=== PATIENT | male | born 1955 | race Caucasian/White ===

== ENCOUNTER → 2017-10-04 | Outpatient (CLI) | payer OTHER | LOC: M LRY 15:53 | DX: S69.91XA Unspecified injury of right wrist, hand and finger(s), initial encounter (principal); X58.XXXA Exposure to other specified factors, initial encounter; Y92.89 Other specified places as the place of occurrence of the external cause; Y93.9 Activity, unspecified; Y99.9 Unspecified external cause status | CPT/HCPCS: 73140 ==

== ENCOUNTER 2019-06-13 17:48 | Emergency (ER) | payer OTHER ==
[~2019-06-13] VITALS: Ht 180.3 cm; Wt 102.5 kg
[2019-06-13] MEDS ORDERED: COMB0.2S (17:57)
[2019-06-13] MEDS ORDERED: TRAV04OPD OU (17:57)
[2019-06-13] MEDS ORDERED: BACITRACIN OINT 30GM TOP STA (18:23)
[2019-06-13] MEDS ORDERED: NORCO 5/325MG TABLET (BULK FOR ED) PO ONE (18:30)
[2019-06-13] MEDS ORDERED: ADACEL/BOOSTRIX VACCINE (DIPHTH/PERTUSS/ACELL/TETANUS)0.5ML SYR (90715) IM ONE (18:30)
[2019-06-13] MEDS ORDERED: IBUPROFEN 600 MG TAB PO ONE (19:00)
[2019-06-13] MEDS ORDERED: ACETAMINOPHEN TAB 650MG DOSE (2X325MG) PO ONE (19:00)
[2019-06-13] MEDS ORDERED: BACI500O21 TOP (19:28)
[2019-06-13 19:32] VITALS: BP 189/120
== END 2019-06-13 19:34 | disposition home or self-care (01) ==
LOC: M ED 17:48
DX: T20.29XA Burn of second degree of multiple sites of head, face, and neck, initial encounter (principal); T20.19XA Burn of first degree of multiple sites of head, face, and neck, initial encounter; T31.0 Burns involving less than 10% of body surface; X10.2XXA Contact with fats and cooking oils, initial encounter; Y92.009 Unspecified place in unspecified non-institutional (private) residence as the place of occurrence of the external cause; Y93.G1 Activity, food preparation and clean up; Y99.9 Unspecified external cause status; H40.9 Unspecified glaucoma; Z79.899 Other long term (current) drug therapy

== ENCOUNTER → 2020-01-05 | Outpatient (REF) | payer MEDICARE, OTHER ==
[~2020-01-05] MED LIST: BACI500O21 TOP; COMB0.2S; OMEP-221; SILD50TA2; TRAV04OPD OU; VITA50005
[2020-02-07 15:40] LABS: BASO % 0.4 % (0.0-1.0); EOS # 0.1 10^3/uL (0.0-0.5); EOS % 0.8 % (0.0-3.0); HEMATOCRIT 41.8 % (42.0-52.0); HEMOGLOBIN 13.3 g/dl (13.5-17.5); LYMPH # 1.3 10^3/uL (1.5-5.0); LYMPH % 17.8 % (24.0-44.0); MEAN CORPUSCULAR HEMOGLOBIN 31.2 pg (27.0-33.0); MEAN CORPUSCULAR HGB CONC 31.8 g/dl (32.0-36.5); MEAN CORPUSCULAR VOLUME 98.1 fl (80.0-96.0); MONO # 0.4 10^3/uL (0.0-0.8); MONO % 5.3 % (0.0-5.0); NEUTROPHILS # 5.5 10^3/uL (1.5-8.5); NEUTROPHILS % 75.6 % (36.0-66.0); PLATELET COUNT, AUTOMATED 250 10^3/uL (150-450); RED BLOOD COUNT 4.26 10^6/uL (4.30-6.10); WHITE BLOOD COUNT 7.3 10^3/uL (4.0-10.0)
[2020-02-19 16:56] LABS: ALBUMIN 3.9 GM/DL (3.2-5.2); ALT/SGPT 31 U/L (12-78); BILIRUBIN,TOTAL 0.4 MG/DL (0.2-1.0); BLOOD UREA NITROGEN 16 MG/DL (7-18); CALCIUM LEVEL 9.1 MG/DL (8.8-10.2); CARBON DIOXIDE LEVEL 26 MEQ/L (21-32); CHLORIDE LEVEL 109 MEQ/L (98-107); CHOLESTEROL LEVEL 196 MG/DL (<200); CHOLESTEROL RISK RATIO 3.563 (<5); CREATININE FOR GFR 1.19 MG/DL (0.70-1.30); GLOMERULAR FILTRATION RATE > 60.0 (>49); GLUCOSE, FASTING 109 MG/DL (70-100); HDL CHOLESTEROL 55 MG/DL (>40); LDL CHOLESTEROL 115 MG/DL (<100); NON-HDL-C 141 MG/DL; POTASSIUM SERUM 3.8 MEQ/L (3.5-5.1); SODIUM LEVEL 141 MEQ/L (136-145); TOTAL 25(OH) VITAMIN D 28.1 NG/ML (30.0-100.0); TOTAL PROTEIN 6.6 GM/DL (6.4-8.2); TRIGLYCERIDES LEVEL 132 MG/DL (<150)
[2020-02-19 16:57] LABS: HEMOGLOBIN A1c 5.6 %
== END ==
LOC: M WUC 13:08
PROVIDERS: ATTEND Physician Assistant
DX: Z13.29 Encounter for screening for other suspected endocrine disorder (principal); Z13.220 Encounter for screening for lipoid disorders; R35.1 Nocturia; E78.00 Pure hypercholesterolemia, unspecified; Z12.5 Encounter for screening for malignant neoplasm of prostate
CPT/HCPCS: 36415; 80053; 80061; 82306; 83036; 85025; G0103

== ENCOUNTER → 2020-09-12 | Outpatient (CLI) | payer MEDICARE, OTHER ==
[2020-09-12 16:47] LABS: BASO % 0.4 % (0.0-1.0); EOS % 0.4 % (0.0-3.0); HEMATOCRIT 46.9 % (42.0-52.0); LYMPH # 1.7 10^3/uL (1.5-5.0); MEAN CORPUSCULAR HEMOGLOBIN 30.6 pg (27.0-33.0); MEAN CORPUSCULAR VOLUME 95.7 fl (80.0-96.0); MONO # 0.7 10^3/uL (0.0-0.8); MONO % 6.4 % (2.0-8.0); NEUTROPHILS # 8.1 10^3/uL (1.5-8.5); NEUTROPHILS % 76.3 % (36.0-66.0); PLATELET COUNT, AUTOMATED 294 10^3/uL (150-450); WHITE BLOOD COUNT 10.5 10^3/uL (4.0-10.0)
[2020-09-12 17:57] LABS: BLOOD UREA NITROGEN 13 MG/DL (7-18); CALCIUM LEVEL 9.5 MG/DL (8.8-10.2); CARBON DIOXIDE LEVEL 23 MEQ/L (21-32); CHLORIDE LEVEL 105 MEQ/L (98-107); CREATININE FOR GFR 1.14 MG/DL (0.70-1.30); GLOMERULAR FILTRATION RATE > 60.0 (>49); GLUCOSE, FASTING 112 MG/DL (70-100); POTASSIUM SERUM 3.7 MEQ/L (3.5-5.1); SODIUM LEVEL 138 MEQ/L (136-145)
[2020-09-12 17:58] LABS: ALT/SGPT 21 U/L (12-78); BILIRUBIN,TOTAL 0.6 MG/DL (0.2-1.0); CHOLESTEROL LEVEL 186 MG/DL (<200); CHOLESTEROL RISK RATIO 3.647 (<5); HDL CHOLESTEROL 51 MG/DL (>40); LDL CHOLESTEROL 75 MG/DL (<100); NON-HDL-C 135 MG/DL; TOTAL 25(OH) VITAMIN D 41.8 NG/ML (30.0-100.0); TOTAL PROTEIN 6.7 GM/DL (6.4-8.2); TRIGLYCERIDES LEVEL 299 MG/DL (<150)
== END ==
LOC: M WUC 13:50
PROVIDERS: ATTEND Physician Assistant
DX: E55.9 Vitamin D deficiency, unspecified (principal); E75.6 Lipid storage disorder, unspecified; Z12.5 Encounter for screening for malignant neoplasm of prostate; Z79.899 Other long term (current) drug therapy
CPT/HCPCS: 36415; 80053; 80061; 82306; 85025; G0103

== ENCOUNTER → 2020-10-17 | Outpatient (REF) | payer MEDICARE, OTHER | LOC: M LAB REF 09:04 | PROVIDERS: ATTEND Otolaryngology | DX: D37.02 Neoplasm of uncertain behavior of tongue (principal) ==

== ENCOUNTER → 2020-11-02 | Outpatient (CLI) | payer MEDICARE, OTHER ==
[~2020-11-02] MED LIST changes: +ISOVUE-370 76% 100ML VIAL As Ordered ONE
--- NOTE | 2020-11-02 14:58 | REPVR ---
PROCEDURE INFORMATION: Exam: CT Neck With Contrast Exam date and time: 11/02/2020 2:08 PM Age: 65 years old Clinical indication: Other: Neoplasm uncertain behavior tongue TECHNIQUE: Imaging protocol: Computed tomography images of the neck with contrast. Radiation optimization: All CT scans at this facility use at least one of these dose optimization techniques: automated exposure control; mA and/or kV adjustment per patient size (includes targeted exams where dose is matched to clinical indication); or iterative reconstruction. Contrast material: ISOVUE 370; Contrast volume: 75 ml; Contrast route: INTRAVENOUS (IV); COMPARISON: No relevant prior studies available. FINDINGS: Nasopharynx: Unremarkable. Oropharynx: There is extensive motion noted involving the base of the tongue as well as significant artifact is from dentition/metal fillings. The base of the tongue is not seen adequately enough to comment. There may be a soft tissue density to the left measuring 15 x 14 mm. Consider MRI. Hypopharynx: Unremarkable. Larynx: Unremarkable. Normal epiglottis. Retropharyngeal space: Unremarkable. Submandibular/Parotid glands: Normal. Glands are normal in size. Thyroid: Subtle heterogenicity is noted involving the left lobe of the thyroid. Lymph nodes: Unremarkable. No lymphadenopathy. Trachea: Visualized trachea is unremarkable. Lungs: Unremarkable as visualized. Bones/joints: Unremarkable. No acute fracture. Soft tissues: See "Oropharynx" finding. IMPRESSION: Poor visualization of the base of the tongue due to the factors as above. Consider MRI for better visualization if the patient can hold still for the examination as dentition does limit this of area of evaluation as well. Questionable mass left base of tongue. Electronically signed by: Arthur Floyd On 11/02/2020 14:58:25 PM
== END ==
LOC: M RAD 13:51
PROVIDERS: ATTEND Otolaryngology
DX: D37.02 Neoplasm of uncertain behavior of tongue (principal)
CPT/HCPCS: 70491; Q9967

== ENCOUNTER → 2020-11-17 | Outpatient (CLI) | payer MEDICARE, OTHER ==
[~2020-11-17] MED LIST changes: +ERGO500029; -ISOVUE-370 76% 100ML VIAL As Ordered ONE; -VITA50005
[2020-11-17 11:08] LABS: CREATININE FOR GFR 1.34 MG/DL (0.70-1.30); GLOMERULAR FILTRATION RATE 56.8 (>49)
== END ==
LOC: M WUC 08:03
PROVIDERS: ATTEND Otolaryngology
DX: D00.07 Carcinoma in situ of tongue (principal)

== ENCOUNTER → 2020-11-30 | Outpatient (CLI) | payer MEDICARE, OTHER ==
[~2020-11-30] MED LIST changes: +DRIS50003 PO; +PROHANCE 279.3MG/ML 15ML VIAL As Ordered ONE; +PROHANCE 279.3MG/ML 5ML VIAL As Ordered ONE
--- NOTE | 2020-11-30 10:11 | REP ---
INDICATION: CARCINOMA OF TONGUE. 5 mm area of leukoplakia on the ventral surface of the tongue. Rule out lymphadenopathy. Comparison CT study November 02, 2020 COMPARISON: Comparison CT study of the neck November 02, 2020.. TECHNIQUE: Pre and post gadolinium enhanced imaging is acquired with axial, coronal, and sagittal imaging planes. T1 and T2 weighted scans are included with without fat saturation. The gadolinium enhancement dose is 20 mL of intravenous ProHance. FINDINGS: There are 1 or 2 normal-sized anterior cervical lymph nodes. There is no evidence of submental, suprahyoid, or infrahyoid adenopathy in the neck. Question nodular changes in the visualized portions of the left lobe of the thyroid. Thyroid lobes are otherwise homogeneous. Submandibular glands and parotid glands are normal and symmetric. There is no evidence of intraorbital mass. The visualized paranasal sinuses are clear. The visualized tongue and floor of mouth structures are unremarkable and symmetric on pre and postcontrast imaging. No tongue mass is resolved. Posterior surface of the tongue is unremarkable on sagittal post gadolinium enhanced MRI study. No bony destructive lesion is seen. The visualized intracranial structures are unremarkable. IMPRESSION: No mass or adenopathy seen. <Electronically signed by Jordi Houser > 11/30/20 0319
== END ==
LOC: M RAD 07:13
PROVIDERS: ATTEND Otolaryngology
DX: D00.07 Carcinoma in situ of tongue (principal)
CPT/HCPCS: 70543; A9576

== ENCOUNTER → 2020-12-03 | Outpatient (CLI) | payer MEDICARE, OTHER ==
[~2020-12-03] MED LIST changes: -PROHANCE 279.3MG/ML 15ML VIAL As Ordered ONE; -PROHANCE 279.3MG/ML 5ML VIAL As Ordered ONE; +TIMO0.5S29
== END ==
LOC: M LABSMTC 09:14
PROVIDERS: ATTEND Anesthesiology
DX: Z01.812 Encounter for preprocedural laboratory examination (principal)

== ENCOUNTER 2020-12-08 08:54 | Day surgery (SDC) | payer MEDICARE, OTHER ==
[~2020-12-08] VITALS: Ht 180.3 cm; Wt 100.7 kg
[~2020-12-08 08:54] MED LIST changes: +LR 1,000 ML IV ONE; -TIMO0.5S29; +dexameTHASONE 4 MG/ML 1ML VIAL (J1100 PER 1MG) IV ONE
[2020-12-08] MEDS ORDERED: TIMO0.5S29 (09:49)
[2020-12-08] MEDS ORDERED: propofoL 200 MG/20 ML VIAL As Ordered ONE (10:43)
[2020-12-08] MEDS ORDERED: ROCURONIUM BROMIDE 50 MG/5 ML VIAL As Ordered ONE (10:43)
[2020-12-08] MEDS ORDERED: ACETAMINOPHEN 1000MG 100ML IV BTL (OFIRMEV) (J0131 PER 10MG) As Ordered ONE (10:43)
[2020-12-08] MEDS ORDERED: ONDANSETRON 4MG/2ML VIAL As Ordered ONE (10:43)
[2020-12-08] MEDS ORDERED: MIDAZOLAM INJ 2MG/2ML VIAL (J2250 PER 1MG) As Ordered ONE (10:43)
[2020-12-08] MEDS ORDERED: dexameTHASONE 4 MG/ML 1ML VIAL (J1100 PER 1MG) As Ordered ONE (10:43)
[2020-12-08] MEDS ORDERED: fentaNYL 100 MCG/2 ML INJECTION (J3010) As Ordered ONE (10:43)
[2020-12-08] MEDS ORDERED: KETOROLAC 60MG 2ML VIAL As Ordered ONE (10:43)
[2020-12-08] MEDS ORDERED: LIDOCAINE 2% 100MG/5ML SDV (FOR ANES.) As Ordered ONE (10:43)
[2020-12-08] MEDS ORDERED: SUGAMMADEX SODIUM 500 MG/5 ML VIAL (BRIDION) As Ordered ONE (10:50)
[2020-12-08] MEDS ORDERED: LIDOCAINE W/EPINEPHRINE 1% 20ML VIAL As Ordered ONE (11:15)
[2020-12-08] MEDS ORDERED: METHYLENE BLUE 0.5% (5MG/ML) 10 ML AMP (PROVAYBLUE) As Ordered ONE (11:15)
[2020-12-08] MEDS ORDERED: OXYMETAZOLINE 0.05% NASAL SPRAY (AFRIN) As Ordered ONE (11:15)
[2020-12-08] MEDS ORDERED: CEFUROXIME INJ 1.5 GM VIAL (J0697 PER 750MG) As Ordered ONE (12:13)
[2020-12-08] MEDS ORDERED: LABETALOL 100MG/20ML VIAL As Ordered ONE (13:42)
[2020-12-08] MEDS ORDERED: fentaNYL 100 MCG/2 ML INJECTION (J3010) IV PRN (13:45)
[2020-12-08] MEDS ORDERED: ONDANSETRON 4MG/2ML VIAL IV PRN (13:45)
[2020-12-08] MEDS ORDERED: LR 1,000 ML IV SCH ×2 (13:45)
[2020-12-08] MEDS ORDERED: oxyCODONE 5MG TAB PO PRN (13:45)
[2020-12-08] MEDS ORDERED: METOCLOPRAMIDE INJ 10MG/2ML VIAL (J2765 PER 1) IV PRN (13:45)
[2020-12-08] MEDS ORDERED: HYDROMORPHONE HCL 0.5 MG/ 0.5 ML SYRINGE (J1170 PER 1) IV PRN (13:45)
[2020-12-08] MEDS: LABETALOL 100MG/20ML VIAL IV PRN ×2 (13:46→13:51)
[2020-12-08] MEDS: hydrALAZINE 20MG/ML 1ML VIAL (J0360 PER 20MG) IV PRN ×2 (15:43→15:49)
[2020-12-08] MEDS ORDERED: hydrALAZINE 20MG/ML 1ML VIAL (J0360 PER 20MG) IV PRN (16:25)
[2020-12-08] MEDS ORDERED: LABETALOL 100MG/20ML VIAL IV PRN (16:25)
[2020-12-08 16:47] VITALS: BP 175/102
[2020-12-08 17:15] VITALS: BP 170/90
--- NOTE | 2020-12-09 22:31 | ECGEPIP ---
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
--- NOTE | 2021-01-04 08:41 | RO ---
OPERATIVE NOTE DATE OF OPERATION: 12/08/2020 PREOPERATIVE DIAGNOSIS: Carcinoma in situ left ventral tongue. POSTOPERATIVE DIAGNOSIS: Carcinoma in situ left ventral tongue. PROCEDURE PERFORMED: Excision of the carcinoma in situ from the left ventral tongue 2 x 1.8 cm. Direct suspension microlaryngoscopy. SURGEON: Jonel Jamison MD. 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 CLINICAL PREAMBLE: This 65-year-old man presented to the office with a six month history of sore area over the left ventral tongue. Biopsy confirmed presence of carcinoma in situ of the left ventral tongue lesion. Management options including excision of the tongue lesion have been discussed. MRI showed no evidence of cervical lymphadenopathy. Patient understood and consented to the procedure. CT of the neck showed questionable mass in the left base of tongue. OR NARRATION: Patient was identified in preholding and brought to the operating room in stable condition. In the supine position on the operating table, patient received general anesthesia followed by nasotracheal intubation without incident. Patient prepped and draped in the usual fashion for the procedure. Bimanual palpation of the oral cavity, oral tongue, base of tongue, buccal, lateral and posterior pharyngeal wall showed no evidence of discreet nodule. Using the Dedo-Pilling laryngoscope, the mucosa of the oral cavity, oropharynx, base of tongue, supraglottis, glottis, and hypopharynx were visualized. There was no evidence of mucosal lesion. Attention was paid to the left base of the tongue region which showed no evidence of ulceration or mass lesion. The oral cavity was then retracted open. The tongue was then retracted rightward to allow exposure of the left ventral tongue. The lesion was visualized and outlined to ensure a centimeter margin. Excision was then performed to obtain the tissue specimen measuring 2 x 1.8 cm with at least 1 cm deep margin as well. Upon completion of the excision, the specimen was marked with one suture indicating anterior and two sutures to indicate superior position of the specimen. Hemostasis was observed. The wound was then closed in two layers. Complete hemostasis was observed at the end of the case. Estimated blood loss was less than 20 mL. General anesthesia was reversed. Instrument and sponge counts were correct. Patient was extubated and brought to recovery room in stable condition. Edited: bryce 01/04/2021 0904 MTDD
== END 2020-12-08 17:32 | disposition home or self-care (01) ==
LOC: M SDC 08:54
PROVIDERS: ATTEND Otolaryngology
DX: D00.07 Carcinoma in situ of tongue (principal); I10 Essential (primary) hypertension; K21.9 Gastro-esophageal reflux disease without esophagitis; T88.59XD Other complications of anesthesia, subsequent encounter; X58.XXXD Exposure to other specified factors, subsequent encounter; Z79.899 Other long term (current) drug therapy; Z96.1 Presence of intraocular lens
CPT/HCPCS: 41112; 88305; 93005; J0131; J0360; J0697; J1100; J1885; J2250; J2405; J3010; Q9968

== ENCOUNTER → 2020-12-23 | Outpatient (CLI) | payer MEDICARE, OTHER ==
[~2020-12-23] MED LIST changes: -LR 1,000 ML IV ONE; +TIMO0.5S29; -dexameTHASONE 4 MG/ML 1ML VIAL (J1100 PER 1MG) IV ONE
--- NOTE | 2020-12-25 05:52 | ECHO ---
ECHOCARDIOGRAM DATE OF PROCEDURE: 12/23/2020 Age: 65 Gender: Male Height: 180 cm Weight: 99 kg REFERRING PHYSICIAN: Kathia James M.D. INDICATION: Essential hypertension. MEASUREMENTS: 2D Measurements: LVOT 2.0 cm Intraventricular septum 1.41 cm Posterior wall 1.3 cm Left ventricle diastole 4.1 cm Left ventricle systole 2.5 cm Left atrium 3.5 cm Left atrial volume index 23 Proximal ascending aorta 4.1 cm Doppler Measurements: No aortic stenosis No aortic regurgitation LVOT velocity 85.2 cm/sec No mitral regurgitation No mitral stenosis Mitral E velocity 67.6 cm/sec Mitral A velocity 87.4 cm/sec Mitral deceleration time 165 msec No tricuspid regurgitation Mild pulmonic regurgitation MITRAL ANNULAR TISSUE DOPPLER: E prime septal 3.7 cm/sec E prime lateral 5.1 cm/sec DESCRIPTION: Rhythm was sinus. Image quality was fair. No pericardial effusion. This was a 2D, M-mode, color flow Doppler and pulse wave Doppler examination including mitral annular tissue Doppler. CONCLUSIONS: 1. Mild concentric left ventricular hypertrophy. Normal regional left ventricular (LV) wall motion and wall thickening. Normal LV systolic function. Left ventricular ejection fraction (LVEF) 70% by visual assessment. Grade 1 LV diastolic dysfunction. 2. Mild dilatation of the proximal ascending aorta. 3. Moderate aortic valve sclerosis of A3-cuspid aortic valve. No aortic stenosis or regurgitation. 4. Normal left atrial volume index. 5. Otherwise normal appearing echocardiogram Doppler findings.
== END ==
LOC: M CARPUL 08:23
PROVIDERS: ATTEND Family Medicine
DX: I10 Essential (primary) hypertension (principal)

== ENCOUNTER → 2021-01-10 | Outpatient (REF) | payer MEDICARE, OTHER | LOC: M LAB REF 19:23 | PROVIDERS: ATTEND Physician Assistant | DX: J20.9 Acute bronchitis, unspecified (principal) ==

== ENCOUNTER → 2021-01-11 | Outpatient (CLI) | payer MEDICARE, OTHER ==
--- NOTE | 2021-01-11 08:38 | REP ---
INDICATION: J20.9 ACUTE BRONCHITIS. COMPARISON: None. TECHNIQUE: PA and lateral FINDINGS: The superior mediastinal structures are midline. The cardiac silhouette is unremarkable in size, shape, and position. The diaphragmatic surfaces of the lungs are regular, and the costophrenic angles are clear. The pulmonary kaur are clear. The imaged osseous structures are intact. IMPRESSION: There is no acute cardiopulmonary disease. <Electronically signed by Cm Stone > 01/11/21 0890
== END ==
LOC: M WUC 08:17
PROVIDERS: ATTEND Physician Assistant
DX: J20.9 Acute bronchitis, unspecified (principal)

== ENCOUNTER → 2021-01-19 | Outpatient (CLI) | payer MEDICARE, OTHER | LOC: M WUC 08:14 | PROVIDERS: ATTEND Nurse Practitioner Women's Health | DX: R97.20 Elevated prostate specific antigen [PSA] (principal) ==

== ENCOUNTER → 2021-08-14 | Outpatient (CLI) | payer MEDICARE, OTHER ==
[~2021-08-14] MED LIST changes: -OMEP-221; +OMEP40CA5; +PROHANCE 279.3MG/ML 15ML VIAL As Ordered ONE; +PROHANCE 279.3MG/ML 5ML VIAL As Ordered ONE
== END ==
LOC: M PLAIMG 07-26 07:48 → M RAD 13:15
PROVIDERS: ATTEND Otolaryngology
DX: C02.1 Malignant neoplasm of border of tongue (principal)
CPT/HCPCS: 70543; A9576

== ENCOUNTER → 2021-09-28 | Outpatient (CLI) | payer MEDICARE, OTHER ==
[~2021-09-28] MED LIST changes: +BIMA1SOL OU; +DORZ2SOL5 OU; +ENAL-36 PO; -OMEP40CA5; +OMEP40CA5 PO; +PERI12LIQ PO; -PROHANCE 279.3MG/ML 15ML VIAL As Ordered ONE; -PROHANCE 279.3MG/ML 5ML VIAL As Ordered ONE; -SILD50TA2; +SILD50TA2 PO
== END ==
LOC: M LABSMTC 10:06
PROVIDERS: ATTEND Anesthesiology
DX: Z01.812 Encounter for preprocedural laboratory examination (principal); Z20.822 Contact with and (suspected) exposure to COVID-19

== ENCOUNTER → 2021-09-30 | Outpatient (CLI) | payer MEDICARE, OTHER | LOC: M EKG 08:22 | PROVIDERS: ATTEND Anesthesiology | DX: I10 Essential (primary) hypertension (principal) ==

== ENCOUNTER 2021-10-03 07:16 | Inpatient (IN) | payer MEDICARE, OTHER ==
[2021-10-03] VITALS (15 sets, daily range): BP systolic 134–179; BP diastolic 68–106; O2SAT 93–96
[~2021-10-03] VITALS: Ht 180.3 cm; Wt 94.7 kg
[~2021-10-03 07:16] MED LIST changes: +LR 1,000 ML IV ONE; +dexameTHASONE 4 MG/ML 1ML VIAL (J1100 PER 1MG) IV ONE
[2021-10-03] MEDS ORDERED: fentaNYL 100 MCG/2 ML INJECTION As Ordered ONE (08:30)
[2021-10-03] MEDS ORDERED: dexameTHASONE 4 MG/ML 1ML VIAL (J1100 PER 1MG) As Ordered ONE (08:30)
[2021-10-03] MEDS ORDERED: KETOROLAC 60MG 2ML VIAL As Ordered ONE (08:30)
[2021-10-03] MEDS ORDERED: METOCLOPRAMIDE INJ 10MG/2ML VIAL (J2765 PER 1) As Ordered ONE (08:30)
[2021-10-03] MEDS ORDERED: ONDANSETRON 4MG/2ML VIAL As Ordered ONE (08:30)
[2021-10-03] MEDS ORDERED: LIDOCAINE 2% 100MG/5ML SDV (FOR ANES.) As Ordered ONE (08:30)
[2021-10-03] MEDS ORDERED: ROCURONIUM BROMIDE 50 MG/5 ML VIAL As Ordered ONE (08:30)
[2021-10-03] MEDS ORDERED: MIDAZOLAM INJ 2MG/2ML VIAL (J2250 PER 1MG) As Ordered ONE (08:30)
[2021-10-03] MEDS ORDERED: propofoL 200 MG/20 ML VIAL As Ordered ONE ×2 (08:30→14:03)
[2021-10-03] MEDS ORDERED: LIDOCAINE W/EPINEPHRINE 1% 20ML VIAL As Ordered ONE (09:14)
[2021-10-03] MEDS ORDERED: POLYSPORIN TOPICAL OINTMENT 15GM As Ordered ONE (09:15)
[2021-10-03] MEDS ORDERED: PHENYLEPHRINE 0.5% NASAL SPRAY 15 ML As Ordered ONE (09:33)
[2021-10-03] MEDS ORDERED: HYDROmorphone HCL 2MG/ML 1ML VIAL As Ordered ONE (10:06)
[2021-10-03] MEDS ORDERED: LABETALOL 100MG/20ML VIAL As Ordered ONE (11:43)
[2021-10-03] MEDS ORDERED: oxyCODONE 5MG TAB PO PRN (14:10)
[2021-10-03] MEDS ORDERED: LR 1,000 ML IV SCH ×2 (14:10→15:35)
[2021-10-03] MEDS ORDERED: ONDANSETRON 4MG/2ML VIAL IV PRN ×3 (14:10→20:00)
[2021-10-03] MEDS ORDERED: fentaNYL 100 MCG/2 ML INJECTION IV PRN (14:10)
[2021-10-03] MEDS ORDERED: HYDROMORPHONE HCL 0.5 MG/ 0.5 ML SYRINGE (J1170 PER 1) IV PRN (14:10)
[2021-10-03] MEDS ORDERED: ACETAMINOPHEN TAB 650MG DOSE (2X325MG) PO PRN (15:50)
[2021-10-03] MEDS ORDERED: MAALOX 30 ML SUSP *UDC PO PRN (15:50)
[2021-10-03] MEDS: NS 1,000 ML IV SCH (16:33)
[2021-10-03] MEDS: dexameTHASONE 4 MG/ML 1ML VIAL (J1100 PER 1MG) IV SCH (17:34)
[2021-10-03] MEDS: PANTOPRAZOLE 40MG VIAL IV SCH (17:34)
[2021-10-03] MEDS ORDERED: diphenhydrAMINE 50MG/ML VIAL (J1200) IV PRN ×2 (20:00)
[2021-10-03] MEDS ORDERED: NALOXONE INJ 0.4MG/1ML VIAL (J2310 PER 1MG) IV PRN ×2 (20:00)
[2021-10-03] MEDS ORDERED: NS 1,000 ML IV SCH (20:00)
[2021-10-03] MEDS ORDERED: EPIDURAL/PCA KEYS XX PRN ×2 (20:00)
[2021-10-03] MEDS ORDERED: MORPHINE 1MG/ML IN 0.9% NACL 100ML IV BAG IV PRN (20:00)
[2021-10-03] MEDS: MORPHINE 1MG/ML IN 0.9% NACL 100ML IV BAG IV PRN (20:10)
[2021-10-03] MEDS: DOCUSATE SODIUM 100MG CAPSULE PO SCH (21:00)
[2021-10-03] MEDS: BACITRACIN OINTMENT 30GM TUBE TOP SCH (21:00)
[2021-10-04] VITALS (17 sets, daily range): BP systolic 139–168; BP diastolic 72–86; O2SAT 93–96
[2021-10-04] MEDS: dexameTHASONE 4 MG/ML 1ML VIAL (J1100 PER 1MG) IV SCH ×2 (02:04→09:48)
[2021-10-04 05:07] LABS: BASO % 0.1 % (0.0-1.0); HEMATOCRIT 39.7 % (42.0-52.0); HEMOGLOBIN 12.9 g/dl (13.5-17.5); LYMPH # 0.5 10^3/uL (1.5-5.0); LYMPH % 3.1 % (24.0-44.0); MEAN CORPUSCULAR HEMOGLOBIN 32.7 pg (27.0-33.0); MEAN CORPUSCULAR HGB CONC 32.5 g/dl (32.0-36.5); MEAN CORPUSCULAR VOLUME 100.8 fl (80.0-96.0); MONO # 0.2 10^3/uL (0.0-0.8); MONO % 1.6 % (2.0-8.0); NEUTROPHILS # 13.8 10^3/uL (1.5-8.5); NEUTROPHILS % 94.7 % (36.0-66.0); PLATELET COUNT, AUTOMATED 310 10^3/uL (150-450); RED BLOOD COUNT 3.94 10^6/uL (4.30-6.10); WHITE BLOOD COUNT 14.6 10^3/uL (4.0-10.0)
[2021-10-04 05:33] LABS: ALBUMIN 3.4 GM/DL (3.2-5.2); ALT/SGPT 24 U/L (12-78); BILIRUBIN,TOTAL 0.6 MG/DL (0.2-1.0); BLOOD UREA NITROGEN 15 MG/DL (7-18); CALCIUM LEVEL 9.3 MG/DL (8.8-10.2); CARBON DIOXIDE LEVEL 24 MEQ/L (21-32); CHLORIDE LEVEL 107 MEQ/L (98-107); CREATININE FOR GFR 1.06 MG/DL (0.70-1.30); GLOMERULAR FILTRATION RATE > 60.0 (>49); GLUCOSE, FASTING 152 MG/DL (70-100); MAGNESIUM LEVEL 2.5 MG/DL (1.8-2.4); POTASSIUM SERUM 4.2 MEQ/L (3.5-5.1); SODIUM LEVEL 137 MEQ/L (136-145); TOTAL PROTEIN 6.6 GM/DL (6.4-8.2)
[2021-10-04] MEDS: DOCUSATE SODIUM 100MG CAPSULE PO SCH ×2 (09:00→20:46)
[2021-10-04] MEDS: BACITRACIN OINTMENT 30GM TUBE TOP SCH ×2 (09:49→22:10)
[2021-10-04] MEDS: MAGIC MOUTHWASH SUSPENSION BTL SSP PRN (14:48)
[2021-10-04] MEDS: NS 1,000 ML IV SCH ×2 (14:48→15:46)
[2021-10-04] MEDS: PANTOPRAZOLE 40MG VIAL IV SCH (18:19)
[2021-10-04] MEDS: MORPHINE 1MG/ML IN 0.9% NACL 100ML IV BAG IV PRN (20:15)
[2021-10-05] VITALS (7 sets, daily range): BP systolic 158–182; BP diastolic 84–110; O2SAT 93–94
[2021-10-05] MEDS: NS 1,000 ML IV SCH ×2 (01:16→13:16)
[2021-10-05] MEDS ORDERED: ENALAPRIL MALEATE 10 MG TAB PO SCH (03:55)
[2021-10-05 05:12] LABS: BASO % 0.1 % (0.0-1.0); HEMATOCRIT 36.8 % (42.0-52.0); HEMOGLOBIN 11.9 g/dl (13.5-17.5); LYMPH # 1.3 10^3/uL (1.5-5.0); LYMPH % 7.5 % (24.0-44.0); MEAN CORPUSCULAR HEMOGLOBIN 33.1 pg (27.0-33.0); MEAN CORPUSCULAR HGB CONC 32.3 g/dl (32.0-36.5); MEAN CORPUSCULAR VOLUME 102.5 fl (80.0-96.0); MONO # 0.9 10^3/uL (0.0-0.8); MONO % 5.4 % (2.0-8.0); NEUTROPHILS # 14.7 10^3/uL (1.5-8.5); NEUTROPHILS % 86.5 % (36.0-66.0); PLATELET COUNT, AUTOMATED 289 10^3/uL (150-450); RED BLOOD COUNT 3.59 10^6/uL (4.30-6.10)
[2021-10-05 05:34] LABS: ALBUMIN 3.1 GM/DL (3.2-5.2); ALT/SGPT 22 U/L (12-78); BILIRUBIN,TOTAL 0.7 MG/DL (0.2-1.0); BLOOD UREA NITROGEN 16 MG/DL (7-18); CALCIUM LEVEL 8.6 MG/DL (8.8-10.2); CARBON DIOXIDE LEVEL 28 MEQ/L (21-32); CHLORIDE LEVEL 107 MEQ/L (98-107); CREATININE FOR GFR 0.96 MG/DL (0.70-1.30); GLOMERULAR FILTRATION RATE > 60.0 (>49); GLUCOSE, FASTING 94 MG/DL (70-100); MAGNESIUM LEVEL 2.7 MG/DL (1.8-2.4); POTASSIUM SERUM 4.3 MEQ/L (3.5-5.1); SODIUM LEVEL 140 MEQ/L (136-145); TOTAL PROTEIN 5.8 GM/DL (6.4-8.2)
[2021-10-05] MEDS: hydrALAZINE 20MG/ML 1ML VIAL (J0360 PER 20MG) IV PRN ×2 (06:51→17:22)
[2021-10-05] MEDS: DOCUSATE SODIUM 100MG CAPSULE PO SCH ×2 (08:34→19:56)
[2021-10-05] MEDS: BACITRACIN OINTMENT 30GM TUBE TOP SCH ×2 (09:12→19:57)
[2021-10-05] MEDS: dexameTHASONE 4 MG/ML 1ML VIAL (J1100 PER 1MG) IV SCH ×2 (09:12→19:56)
[2021-10-05] MEDS: MAGIC MOUTHWASH SUSPENSION BTL SSP PRN (14:42)
[2021-10-05] MEDS: PANTOPRAZOLE 40MG VIAL IV SCH (18:29)
[2021-10-05] MEDS ORDERED: LABETALOL 100MG/20ML VIAL IV STA (18:47)
[2021-10-05] MEDS: NS 0.45% 1,000 ML IV SCH (19:56)
[2021-10-06] VITALS (26 sets, daily range): BP systolic 118–174; BP diastolic 73–100; O2SAT 93–97
[2021-10-06 05:49] LABS: HEMOGLOBIN 13.5 g/dl (13.5-17.5); LYMPH # 0.6 10^3/uL (1.5-5.0); LYMPH % 5.1 % (24.0-44.0); MEAN CORPUSCULAR HEMOGLOBIN 34.1 pg (27.0-33.0); MEAN CORPUSCULAR HGB CONC 32.9 g/dl (32.0-36.5); MEAN CORPUSCULAR VOLUME 103.5 fl (80.0-96.0); MONO # 0.4 10^3/uL (0.0-0.8); MONO % 3.5 % (2.0-8.0); NEUTROPHILS % 90.9 % (36.0-66.0); PLATELET COUNT, AUTOMATED 329 10^3/uL (150-450); RED BLOOD COUNT 3.96 10^6/uL (4.30-6.10)
[2021-10-06 06:21] LABS: ALBUMIN 3.3 GM/DL (3.2-5.2); ALT/SGPT 46 U/L (12-78); BILIRUBIN,TOTAL 0.9 MG/DL (0.2-1.0); BLOOD UREA NITROGEN 19 MG/DL (7-18); CARBON DIOXIDE LEVEL 26 MEQ/L (21-32); CHLORIDE LEVEL 103 MEQ/L (98-107); CREATININE FOR GFR 1.03 MG/DL (0.70-1.30); GLOMERULAR FILTRATION RATE > 60.0 (>49); GLUCOSE, FASTING 143 MG/DL (70-100); MAGNESIUM LEVEL 2.8 MG/DL (1.8-2.4); POTASSIUM SERUM 4.6 MEQ/L (3.5-5.1); SODIUM LEVEL 135 MEQ/L (136-145); TOTAL PROTEIN 6.6 GM/DL (6.4-8.2)
[2021-10-06] MEDS: DOCUSATE SODIUM 100MG CAPSULE PO SCH ×3 (09:00→20:11)
[2021-10-06] MEDS: BACITRACIN OINTMENT 30GM TUBE TOP SCH ×2 (09:41→20:23)
[2021-10-06] MEDS: dexameTHASONE 4 MG/ML 1ML VIAL (J1100 PER 1MG) IV SCH ×2 (09:41→20:22)
[2021-10-06] MEDS: NS 0.45% 1,000 ML IV SCH (12:55)
[2021-10-06] MEDS ORDERED: LABETALOL 100MG/20ML VIAL IV STA (13:16)
[2021-10-06] MEDS ORDERED: MORPHINE 2 MG/ML 1ML VIAL IV PRN (13:35)
[2021-10-06] MEDS: NORCO, ANEXSIA 5/325MG TABLET (HYDROcodone/ACETAMINOPHEN) PO PRN (14:22)
[2021-10-06] MEDS: MAGIC MOUTHWASH SUSPENSION BTL SSP PRN (14:23)
[2021-10-06] MEDS: ENALAPRIL MALEATE 10 MG TAB PO SCH (16:46)
[2021-10-06] MEDS: PANTOPRAZOLE 40MG VIAL IV SCH (18:22)
[2021-10-06] MEDS: COSOPT OCUMETER PLUS 10ML (DORZOLAMIDE/TIMOLOL) OU SCH (20:22)
[2021-10-07] VITALS (9 sets, daily range): BP systolic 120–140; BP diastolic 74–87; O2SAT 92–96
[2021-10-07 06:12] LABS: HEMATOCRIT 39.5 % (42.0-52.0); LYMPH # 0.6 10^3/uL (1.5-5.0); LYMPH % 4.5 % (24.0-44.0); MEAN CORPUSCULAR HEMOGLOBIN 33.1 pg (27.0-33.0); MEAN CORPUSCULAR HGB CONC 32.9 g/dl (32.0-36.5); MEAN CORPUSCULAR VOLUME 100.5 fl (80.0-96.0); MONO # 0.6 10^3/uL (0.0-0.8); MONO % 4.4 % (2.0-8.0); NEUTROPHILS # 11.6 10^3/uL (1.5-8.5); NEUTROPHILS % 90.5 % (36.0-66.0); PLATELET COUNT, AUTOMATED 350 10^3/uL (150-450); RED BLOOD COUNT 3.93 10^6/uL (4.30-6.10); WHITE BLOOD COUNT 12.8 10^3/uL (4.0-10.0)
[2021-10-07] MEDS: NORCO, ANEXSIA 5/325MG TABLET (HYDROcodone/ACETAMINOPHEN) PO PRN ×3 (06:34→21:02)
[2021-10-07 06:44] LABS: ALT/SGPT 78 U/L (12-78); BLOOD UREA NITROGEN 19 MG/DL (7-18); CARBON DIOXIDE LEVEL 23 MEQ/L (21-32); CHLORIDE LEVEL 105 MEQ/L (98-107); GLOMERULAR FILTRATION RATE > 60.0 (>49); GLUCOSE, FASTING 139 MG/DL (70-100); POTASSIUM SERUM 4.4 MEQ/L (3.5-5.1); SODIUM LEVEL 138 MEQ/L (136-145)
[2021-10-07 06:45] LABS: ALBUMIN 3.1 GM/DL (3.2-5.2); BILIRUBIN,TOTAL 0.7 MG/DL (0.2-1.0); MAGNESIUM LEVEL 2.9 MG/DL (1.8-2.4); TOTAL PROTEIN 5.9 GM/DL (6.4-8.2)
[2021-10-07] MEDS: ENALAPRIL MALEATE 10 MG TAB PO SCH (08:25)
[2021-10-07] MEDS: dexameTHASONE 4 MG/ML 1ML VIAL (J1100 PER 1MG) IV SCH (08:26)
[2021-10-07] MEDS: DOCUSATE SODIUM 100MG CAPSULE PO SCH ×3 (08:26→20:56)
[2021-10-07] MEDS: BACITRACIN OINTMENT 30GM TUBE TOP SCH ×2 (08:27→20:57)
[2021-10-07] MEDS: COSOPT OCUMETER PLUS 10ML (DORZOLAMIDE/TIMOLOL) OU SCH ×2 (08:27→20:57)
[2021-10-07] MEDS: HEPARIN SOD (PORCINE) 5000UNITS/ML 1ML VIAL/SYRINGE SQ SCH ×2 (12:05→20:57)
[2021-10-07] MEDS: PANTOPRAZOLE 40MG VIAL IV SCH (17:16)
[2021-10-07] MEDS: LACTOBACILLUS ACIDOPHILUS CAP (BACID) PO SCH (17:16)
[2021-10-07] MEDS: CEFDINIR 300 MG CAP (OMNICEF) PO SCH (20:56)
[2021-10-08 00:14] VITALS: BP 136/85
[2021-10-08 04:10] VITALS: BP 139/88
[2021-10-08 06:45] LABS: BASO % 0.1 % (0.0-1.0); HEMATOCRIT 41.5 % (42.0-52.0); HEMOGLOBIN 13.6 g/dl (13.5-17.5); LYMPH # 0.8 10^3/uL (1.5-5.0); LYMPH % 5.4 % (24.0-44.0); MEAN CORPUSCULAR HEMOGLOBIN 33.2 pg (27.0-33.0); MEAN CORPUSCULAR HGB CONC 32.8 g/dl (32.0-36.5); MEAN CORPUSCULAR VOLUME 101.2 fl (80.0-96.0); MONO # 0.8 10^3/uL (0.0-0.8); MONO % 5.9 % (2.0-8.0); NEUTROPHILS # 12.5 10^3/uL (1.5-8.5); NEUTROPHILS % 87.8 % (36.0-66.0); PLATELET COUNT, AUTOMATED 348 10^3/uL (150-450); WHITE BLOOD COUNT 14.2 10^3/uL (4.0-10.0)
[2021-10-08 07:10] LABS: ALT/SGPT 79 U/L (12-78); BILIRUBIN,TOTAL 0.8 MG/DL (0.2-1.0); BLOOD UREA NITROGEN 23 MG/DL (7-18); CALCIUM LEVEL 9.3 MG/DL (8.8-10.2); CARBON DIOXIDE LEVEL 26 MEQ/L (21-32); CHLORIDE LEVEL 105 MEQ/L (98-107); CREATININE FOR GFR 0.96 MG/DL (0.70-1.30); GLOMERULAR FILTRATION RATE > 60.0 (>49); GLUCOSE, FASTING 121 MG/DL (70-100); MAGNESIUM LEVEL 2.8 MG/DL (1.8-2.4); POTASSIUM SERUM 4.1 MEQ/L (3.5-5.1); SODIUM LEVEL 138 MEQ/L (136-145); TOTAL PROTEIN 5.7 GM/DL (6.4-8.2)
[2021-10-08 08:00] VITALS: BP 162/60
[2021-10-08] MEDS: COSOPT OCUMETER PLUS 10ML (DORZOLAMIDE/TIMOLOL) OU SCH (08:07)
[2021-10-08] MEDS: HEPARIN SOD (PORCINE) 5000UNITS/ML 1ML VIAL/SYRINGE SQ SCH (08:07)
[2021-10-08] MEDS: BACITRACIN OINTMENT 30GM TUBE TOP SCH (08:08)
[2021-10-08] MEDS: CEFDINIR 300 MG CAP (OMNICEF) PO SCH (08:08)
[2021-10-08] MEDS: LACTOBACILLUS ACIDOPHILUS CAP (BACID) PO SCH (08:08)
[2021-10-08 08:09] VITALS: BP 155/84
[2021-10-08] MEDS: ENALAPRIL MALEATE 10 MG TAB PO SCH (08:09)
[2021-10-08] MEDS: NORCO, ANEXSIA 5/325MG TABLET (HYDROcodone/ACETAMINOPHEN) PO PRN (08:10)
[2021-10-08] MEDS: DOCUSATE SODIUM 100MG CAPSULE PO SCH (08:11)
[2021-10-08] MEDS ORDERED: MAGICMW SSP (10:14)
[2021-10-08] MEDS ORDERED: HYDR-3715 PO (10:14)
[2021-10-08] MEDS ORDERED: MIRA3350 PO (10:14)
[2021-10-08] MEDS ORDERED: BACI50OI TOP (10:14)
[2021-10-08] MEDS ORDERED: CEFD300CAP PO (10:14)
[2021-10-08] MEDS ORDERED: AMLO1TAB25 PO (10:14)
[2021-10-08] MEDS ORDERED: RISATAB3 PO (10:14)
[2021-10-08] MEDS ORDERED: ACET-897 PO (10:17)
== END 2021-10-08 13:10 | disposition home health service (06) | DRG 144 ==
LOC: M SDC 07:16 → M PCU 07:17 → OBSVTOIN 10-06 08:12
PROVIDERS: ADMIT Family Medicine; ATTEND Family Medicine
PROC: 0CB70ZZ Excision of Tongue, Open Approach (ICD-10-PCS; principal; 2021-10-08)
PROC: 07B20ZZ Excision of Left Neck Lymphatic, Open Approach (ICD-10-PCS; 2021-10-08)
DX: C02.9 Malignant neoplasm of tongue, unspecified (principal); C77.0 Secondary and unspecified malignant neoplasm of lymph nodes of head, face and neck; I10 Essential (primary) hypertension; H40.9 Unspecified glaucoma; I16.0 Hypertensive urgency; N40.0 Benign prostatic hyperplasia without lower urinary tract symptoms; Z79.899 Other long term (current) drug therapy

== ENCOUNTER → 2021-10-31 | Outpatient (CLI) | payer MEDICARE, OTHER ==
[~2021-10-31] MED LIST changes: +ACET-897 PO; +AMLO1TAB25 PO; +BACI50OI TOP; +CEFD300CAP PO; +HYDR-3715 PO; -LR 1,000 ML IV ONE; +MAGICMW SSP; +MIRA3350 PO; +RISATAB3 PO; -dexameTHASONE 4 MG/ML 1ML VIAL (J1100 PER 1MG) IV ONE
== END ==
LOC: M ONCR 09:45
PROVIDERS: ATTEND General Practice
DX: C02.1 Malignant neoplasm of border of tongue (principal); Z79.899 Other long term (current) drug therapy; Z87.891 Personal history of nicotine dependence

== ENCOUNTER 2021-11-08 08:56 | Outpatient (RCR) | payer MEDICARE, OTHER | END 2021-11-23 | LOC: M ST 08:56 | PROVIDERS: ATTEND Otolaryngology | DX: C02.1 Malignant neoplasm of border of tongue (principal) ==

== ENCOUNTER → 2021-11-13 | Outpatient (CLI) | payer MEDICARE, OTHER | LOC: M PLARAD 13:18 | PROVIDERS: ATTEND Otolaryngology | DX: C02.1 Malignant neoplasm of border of tongue (principal) | CPT/HCPCS: 78815; A9552 ==

== ENCOUNTER 2021-11-20 10:14 | Outpatient (RCR) | payer MEDICARE, OTHER | END 2021-11-23 | LOC: M ONCR 10:14 | PROVIDERS: ATTEND General Practice | DX: C02.1 Malignant neoplasm of border of tongue (principal); K21.9 Gastro-esophageal reflux disease without esophagitis; I10 Essential (primary) hypertension; Z87.891 Personal history of nicotine dependence; Z98.890 Other specified postprocedural states ==

== ENCOUNTER 2021-12-22 10:10 | Outpatient (RCR) | payer MEDICARE, OTHER ==
[~2021-12-22 10:10] MED LIST changes: +OXYC1SOL3 PO
[2021-12-25] MEDS ORDERED: MAGICMW SSP (11:31)
== END 2021-12-24 ==
LOC: M ONCR 10:10
PROVIDERS: ATTEND General Practice
DX: C02.1 Malignant neoplasm of border of tongue (principal)

== ENCOUNTER 2022-01-12 10:13 | Outpatient (RCR) | payer MEDICARE, OTHER ==
[~2022-01-12 10:13] MED LIST changes: +MORP-69 PO
[2022-01-22] MEDS ORDERED: OXYC1SOL3 PO (13:46)
[2022-01-26] MEDS ORDERED: MAGICMW SSP (10:15)
== END 2022-01-24 ==
LOC: M ONCR 10:13
PROVIDERS: ATTEND General Practice
DX: C02.1 Malignant neoplasm of border of tongue (principal)

== ENCOUNTER → 2022-01-26 | Outpatient (CLI) | payer MEDICARE, OTHER ==
[~2022-01-26] MED LIST changes: +BIMA0.036 OU; -BIMA1SOL OU
== END ==
LOC: M ONCR 09:37
PROVIDERS: ATTEND General Practice
DX: L59.8 Other specified disorders of the skin and subcutaneous tissue related to radiation (principal); K12.33 Oral mucositis (ulcerative) due to radiation; R53.83 Other fatigue; Z92.3 Personal history of irradiation

== ENCOUNTER → 2022-02-09 | Outpatient (CLI) | payer MEDICARE, OTHER | LOC: M ONCR 09:25 | PROVIDERS: ATTEND General Practice | DX: C02.9 Malignant neoplasm of tongue, unspecified (principal); K12.33 Oral mucositis (ulcerative) due to radiation; L59.8 Other specified disorders of the skin and subcutaneous tissue related to radiation; Z92.3 Personal history of irradiation ==

== ENCOUNTER → 2022-02-21 | Outpatient (CLI) | payer MEDICARE, OTHER ==
[2022-02-21 10:42] LABS: FREE T3 2.9 PG/ML (2.2-4.0); FREE T4 0.81 NG/DL (0.76-1.46); THYROID STIMULATING HORMONE 0.639 uIU/ML (0.358-3.740)
== END ==
LOC: M LAB 08:51
PROVIDERS: ATTEND Otolaryngology
DX: C02.1 Malignant neoplasm of border of tongue (principal); C77.0 Secondary and unspecified malignant neoplasm of lymph nodes of head, face and neck

== ENCOUNTER → 2022-03-02 | Outpatient (CLI) | payer MEDICARE, OTHER | LOC: M ONCR 09:41 | PROVIDERS: ATTEND General Practice | DX: R53.83 Other fatigue (principal); R43.9 Unspecified disturbances of smell and taste; K12.30 Oral mucositis (ulcerative), unspecified ==

== ENCOUNTER → 2022-03-19 | Outpatient (CLI) | payer MEDICARE, OTHER | LOC: M WUC 08:49 | PROVIDERS: ATTEND Nurse Practitioner Women's Health | DX: Z12.5 Encounter for screening for malignant neoplasm of prostate (principal) | CPT/HCPCS: 36415; G0103 ==

== ENCOUNTER → 2022-03-28 | Outpatient (CLI) | payer MEDICARE, OTHER ==
[2022-03-28 13:06] LABS: BASO % 0.4 % (0.0-1.0); EOS % 0.5 % (0.0-3.0); HEMATOCRIT 44.8 % (42.0-52.0); HEMOGLOBIN 13.9 g/dl (13.5-17.5); LYMPH # 0.5 10^3/uL (1.5-5.0); LYMPH % 9.3 % (24.0-44.0); MEAN CORPUSCULAR HEMOGLOBIN 32.7 pg (27.0-33.0); MEAN CORPUSCULAR VOLUME 105.4 fl (80.0-96.0); MONO # 0.4 10^3/uL (0.0-0.8); MONO % 7.5 % (2.0-8.0); NEUTROPHILS # 4.5 10^3/uL (1.5-8.5); NEUTROPHILS % 81.9 % (36.0-66.0); PLATELET COUNT, AUTOMATED 307 10^3/uL (150-450); RED BLOOD COUNT 4.25 10^6/uL (4.30-6.10); WHITE BLOOD COUNT 5.5 10^3/uL (4.0-10.0)
[2022-03-28 14:13] LABS: BLOOD UREA NITROGEN 15 MG/DL (7-18); CREATININE FOR GFR 0.91 MG/DL (0.70-1.30); GLUCOSE, FASTING 101 MG/DL (70-100)
[2022-03-28 14:14] LABS: ALBUMIN 3.7 GM/DL (3.2-5.2); ALKALINE PHOSPHATASE 59 U/L (45-117); ALT/SGPT 13 U/L (12-78); AST/SGOT 7 U/L (7-37); BILIRUBIN,DIRECT 0.2 MG/DL (0.0-0.2); BILIRUBIN,TOTAL 0.7 MG/DL (0.2-1.0); CALCIUM LEVEL 9.3 MG/DL (8.8-10.2); CARBON DIOXIDE LEVEL 25 MEQ/L (21-32); CHLORIDE LEVEL 109 MEQ/L (98-107); FERRITIN 159 NG/ML (26-388); GLOMERULAR FILTRATION RATE > 60.0 (>49); IRON (FE) 68 UG/DL (65-175); PERCENT SATURATION 21.5 % (19.7-50.0); POTASSIUM SERUM 3.7 MEQ/L (3.5-5.1); SODIUM LEVEL 142 MEQ/L (136-145); TOTAL IRON BINDING CAPACITY 317 UG/DL (250-450); TOTAL PROTEIN 6.3 GM/DL (6.4-8.2)
[2022-03-28 15:09] LABS: FOLATE 3.1 NG/ML (>5.4); VITAMIN B12 LEVEL 211 PG/ML (247-911)
== END ==
LOC: M WUC 09:59
PROVIDERS: ATTEND Physician Assistant
DX: R63.4 Abnormal weight loss (principal)

== ENCOUNTER → 2022-04-23 | Outpatient (CLI) | payer MEDICARE | LOC: M PLARAD 15:02 | PROVIDERS: ATTEND Otolaryngology | DX: C02.1 Malignant neoplasm of border of tongue (principal); C77.0 Secondary and unspecified malignant neoplasm of lymph nodes of head, face and neck; I25.10 Atherosclerotic heart disease of native coronary artery without angina pectoris; I70.0 Atherosclerosis of aorta; N28.1 Cyst of kidney, acquired; K57.30 Diverticulosis of large intestine without perforation or abscess without bleeding | CPT/HCPCS: 78815; A9552 ==

== ENCOUNTER → 2022-04-26 | Outpatient (CLI) | payer MEDICARE, OTHER ==
[~2022-04-26] MED LIST changes: +CETACAINE SPRAY 5GM MT ONE
== END ==
LOC: M ONCR 08:56
PROVIDERS: ATTEND General Practice
DX: C02.1 Malignant neoplasm of border of tongue (principal); C77.0 Secondary and unspecified malignant neoplasm of lymph nodes of head, face and neck; Z79.899 Other long term (current) drug therapy; Z87.891 Personal history of nicotine dependence; Z92.3 Personal history of irradiation
CPT/HCPCS: 31575; G0463

== ENCOUNTER → 2022-07-26 | Outpatient (CLI) | payer MEDICARE, OTHER ==
[~2022-07-26] MED LIST changes: -CETACAINE SPRAY 5GM MT ONE; -ENAL-36 PO; +ENAL1TAB50 PO
== END ==
LOC: M ONCR 09:57
PROVIDERS: ATTEND General Practice
DX: Z08 Encounter for follow-up examination after completed treatment for malignant neoplasm (principal); Z85.810 Personal history of malignant neoplasm of tongue; K12.0 Recurrent oral aphthae; Z87.891 Personal history of nicotine dependence; Z90.49 Acquired absence of other specified parts of digestive tract; Z92.3 Personal history of irradiation

== ENCOUNTER → 2022-10-26 | Outpatient (CLI) | payer MEDICARE, OTHER ==
[~2022-10-26] MED LIST changes: +DICL20GE TP; +TIMO0.5S20; -TIMO0.5S29
[2022-10-26 14:00] LABS: FREE T4 1.09 NG/DL (0.89-1.76); THYROID STIMULATING HORMONE 0.855 uIU/ML (0.55-4.78)
== END ==
LOC: M ONCR 10:17
PROVIDERS: ATTEND General Practice
DX: C02.1 Malignant neoplasm of border of tongue (principal); Z71.2 Person consulting for explanation of examination or test findings; Z79.899 Other long term (current) drug therapy; Z87.891 Personal history of nicotine dependence; Z92.3 Personal history of irradiation
CPT/HCPCS: 36415; 84439; 84443; G0463

== ENCOUNTER → 2023-01-29 | Outpatient (CLI) | payer MEDICARE, OTHER | LOC: M ONCR 09:43 | PROVIDERS: ATTEND General Practice | DX: Z08 Encounter for follow-up examination after completed treatment for malignant neoplasm (principal); Z85.818 Personal history of malignant neoplasm of other sites of lip, oral cavity, and pharynx; R43.2 Parageusia; I89.0 Lymphedema, not elsewhere classified; Z71.2 Person consulting for explanation of examination or test findings; Z79.899 Other long term (current) drug therapy; Z87.891 Personal history of nicotine dependence; Z92.3 Personal history of irradiation ==

== ENCOUNTER → 2023-06-13 | Outpatient (CLI) | payer MEDICARE, OTHER | LOC: M ONCR 10:02 | PROVIDERS: ATTEND General Practice | DX: Z08 Encounter for follow-up examination after completed treatment for malignant neoplasm (principal); Z85.810 Personal history of malignant neoplasm of tongue; Z71.2 Person consulting for explanation of examination or test findings; Z79.899 Other long term (current) drug therapy; Z92.3 Personal history of irradiation; Z90.49 Acquired absence of other specified parts of digestive tract ==

== ENCOUNTER → 2023-06-26 | Outpatient (REF) | payer MEDICARE, OTHER ==
[2023-06-26 14:56] LABS: ALBUMIN 3.8 G/DL (3.2-5.2); ALKALINE PHOSPHATASE 82 U/L (46-116); ALT/SGPT 24 U/L (7.0-40); AST/SGOT 14 U/L (<34); BASO % 0.2 % (0.0-1.0); BILIRUBIN,TOTAL 0.4 MG/DL (0.3-1.2); BLOOD UREA NITROGEN 14 MG/DL (9-23); CALCIUM LEVEL 9.7 MG/DL (8.3-10.6); CARBON DIOXIDE LEVEL 30 MMOL/L (20-31); CHLORIDE LEVEL 104 MMOL/L (98-107); CREATININE FOR GFR 0.96 MG/DL (0.70-1.30); EOS # 0.1 10^3/uL (0.0-0.5); EOS % 0.5 % (0.0-3.0); GLOMERULAR FILTRATION RATE > 60.0 (>49); GLUCOSE, FASTING 121 MG/DL (74-106); HEMATOCRIT 47.3 % (42.0-52.0); HEMOGLOBIN 14.9 g/dl (13.5-17.5); MEAN CORPUSCULAR HEMOGLOBIN 31.5 pg (27.0-33.0); MEAN CORPUSCULAR HGB CONC 31.5 g/dl (32.0-36.5); MONO # 0.7 10^3/uL (0.0-0.8); MONO % 7.4 % (2.0-8.0); NEUTROPHILS # 7.6 10^3/uL (1.5-8.5); NEUTROPHILS % 80.5 % (36.0-66.0); PLATELET COUNT, AUTOMATED 383 10^3/uL (150-450); POTASSIUM SERUM 4.4 MMOL/L (3.5-5.1); PSA SCREENING 1.35 NG/ML (< 4.00); RED BLOOD COUNT 4.73 10^6/uL (4.30-6.10); SODIUM LEVEL 139 MMOL/L (136-145); TOTAL PROTEIN 6.9 G/DL (5.7-8.2); WHITE BLOOD COUNT 9.4 10^3/uL (4.0-10.0)
[2023-06-26 15:01] LABS: FOLATE > 24.0 NG/ML (>5.4); TOTAL 25(OH) VITAMIN D 34.2 NG/ML (20.0-100.0); VITAMIN B12 LEVEL 604 PG/ML (211-911)
== END ==
LOC: M LABWUC 13:28
PROVIDERS: ATTEND Physician Assistant
DX: D51.9 Vitamin B12 deficiency anemia, unspecified (principal); Z12.5 Encounter for screening for malignant neoplasm of prostate
CPT/HCPCS: 36415; 80053; 82306; 82607; 82746; 85025; G0103

== ENCOUNTER → 2023-10-15 | Outpatient (CLI) | payer MEDICARE, OTHER | LOC: M ONCR 10:22 | PROVIDERS: ATTEND General Practice | DX: C02.1 Malignant neoplasm of border of tongue (principal); Z71.2 Person consulting for explanation of examination or test findings; Z87.891 Personal history of nicotine dependence; Z79.899 Other long term (current) drug therapy; Z92.3 Personal history of irradiation ==

== ENCOUNTER → 2024-03-04 | Outpatient (CLI) | payer MEDICARE ==
[~2024-03-04] MED LIST changes: +GASTROGRAFIN SOLUTION 30ML As Ordered ONE; +ISOVUE-370 76% 100ML VIAL As Ordered ONE
== END ==
LOC: M RAD 10:36
PROVIDERS: ATTEND General Practice
DX: C02.1 Malignant neoplasm of border of tongue (principal)
CPT/HCPCS: 70491; 71260; 74177; Q9963; Q9967

== ENCOUNTER → 2024-03-19 | Outpatient (CLI) | payer MEDICARE, OTHER ==
[~2024-03-19] MED LIST changes: -GASTROGRAFIN SOLUTION 30ML As Ordered ONE; -ISOVUE-370 76% 100ML VIAL As Ordered ONE
[2024-03-19 12:08] LABS: FREE T4 1.17 NG/DL (0.89-1.76); THYROID STIMULATING HORMONE 1.85 uIU/ML (0.55-4.78)
== END ==
LOC: M ONCR 10:07
PROVIDERS: ATTEND General Practice
DX: C01 Malignant neoplasm of base of tongue (principal); Z79.899 Other long term (current) drug therapy; Z87.891 Personal history of nicotine dependence; Z90.49 Acquired absence of other specified parts of digestive tract; Z92.3 Personal history of irradiation
CPT/HCPCS: 36415; 84439; 84443; G0463